=== PATIENT | female | born 1980 | race Two or more races ===

== ENCOUNTER 2020-05-17 11:21 | Emergency (ER) | payer MEDICAID, OTHER ==
[~2020-05-17] VITALS: Ht 157.5 cm; Wt 59.0 kg
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
[2020-05-17 12:39] VITALS: BP 160/74
[2020-05-17] MEDS ORDERED: NAPR-514 PO (13:15)
[2020-05-17] MEDS ORDERED: CYCL10TA2 PO (13:15)
== END 2020-05-17 13:19 | disposition home or self-care (01) ==
LOC: ER 11:21
DX: S13.9XXA Sprain of joints and ligaments of unspecified parts of neck, initial encounter (principal); S50.11XA Contusion of right forearm, initial encounter; S60.221A Contusion of right hand, initial encounter; R51.9 Headache, unspecified; M25.551 Pain in right hip; M25.552 Pain in left hip; V49.49XA Driver injured in collision with other motor vehicles in traffic accident, initial encounter; Y92.488 Other paved roadways as the place of occurrence of the external cause; Y93.89 Activity, other specified; Y99.8 Other external cause status
CPT/HCPCS: 70450; 72125; 73090; 73130; 73521; 81025; 99285-25